=== PATIENT | male | born 1995 | race Caucasian/White ===

== ENCOUNTER 2023-02-24 17:09 | Emergency (ER) | payer OTHER ==
[2023-02-24 17:18] VITALS: BP 151/102; O2SAT 98
--- NOTE | 2023-02-24 17:48 | ED Physician Documentation ---
History of Present Illness - Stated complaint Stated Complaint: /L LEG PX - Chief complaint Chief Complaint: Ext Problem - History obtained from History obtained from: Patient (Worsening left leg pain starting in the groin and now radiating down the last 4 days or so. No recent travel or injury. No back pain. No history of DVT or PE.) PD PAST MEDICAL HISTORY - Past Medical History Past Medical History: No - Past Surgical History Past Surgical History: Yes General: Appendectomy - Present Medications Home Medications: Ambulatory Orders Medication Instructions Recorded Confirmed No Known Home Medications 02/24/23 02/24/23 - Allergies Allergies/Adverse Reactions: Allergies Allergy/AdvReac Type Severity Reaction Status Date / Time No Known Drug Allergies Allergy Verified 02/24/23 17:18 - Social History Does the pt smoke?: No Smoking Status: Never smoker Does the pt drink ETOH?: Yes Does the pt have substance abuse?: No - Immunizations Immunizations are current?: Yes PD ED PE NORMAL - Vitals Vital signs reviewed: Yes - General General: Alert and oriented X 3, No acute distress - Cardiac Cardiac: RRR, No murmur - Respiratory Respiratory: No respiratory distress, Clear bilaterally - Abdomen Abdomen: Non tender - Extremities Extremities: Other (TTP L medial Calf and thigh. No inguinal TTP. ) - Neuro Neuro: Alert and oriented X 3, Normal speech Results - Vitals Vitals: Vital Signs - 24 hr 02/24/23 02/24/23 17:13 17:18 Temperature 36.9 C 36.9 C Heart Rate 103 H 103 H Respiratory 15 15 Rate Blood Pressure 151/102 H 151/102 H O2 Saturation 98 98 Oxygen O2 Source Room air - Rads (name of study) Left leg ultrasound was negative per radiology. Relevant Findings:: Final report received PD Medical Decision Making - ED course ED course: 27-year-old gentleman with progressive pain of the left leg, likely musculoskeletal but ultrasound done to rule out DVT which was negative. No clinical evidence of infection. Departure - Departure Disposition: 01 Home, Self Care Clinical Impression: Pain of lower extremity Condition: Good Record reviewed to determine appropriate education?: Yes Instructions: ED Strain Muscle Ext Comments: No evidence of blood clot thankfully, so likely muscular pain. Tylenol and/or ibuprofen for the pain. Return for new or worsening symptoms. Forms: PCP List, Activity restrictions Discharge Date/Time: 02/24/23 19:18
--- NOTE | 2023-02-24 19:06 | Ultrasound Report ---
PROCEDURE: Duplex Ext Veins Left INDICATIONS: leg pain TECHNIQUE: Real-time imaging, as well as color and pulse Doppler interrogation, were performed of the lower extr emity deep veins from the inguinal ligament to the popliteal fossa. Attempted visualization of the ca lf veins was performed. COMPARISON: None. FINDINGS: The deep veins are normally compressible, and free of intraluminal thrombus. Color and pu lse Doppler demonstrate normal phasic intraluminal flow. There is normal augmentation response to di stal compression maneuver. IMPRESSION: No deep venous thrombosis of the visualized lower extremity. Reviewed by: Danielito Oliveros MD on 02/24/2023 7:05 PM PST Approved by: Danielito Oliveros MD on 02/24/2023 7:05 PM PST Station ID: [id number]
== END 2023-02-24 19:18 | disposition home or self-care (01) ==
LOC: ED 17:09
DX: M79.605 Pain in left leg (principal)
CPT/HCPCS: 99283; 99284